=== PATIENT | male | born 1980 | race Caucasian/White ===

== ENCOUNTER 2017-09-22 13:51 | Inpatient (IN) | payer MEDICARE ==
[2017-09-22 15:38] VITALS: BMI 21.5
--- NOTE | 2017-09-22 16:05 | HP ---
CIWA Score - CIWA Score Nausea/Vomitin Muscle Tremors: 3 Anxiety: 3 Agitation: 3 Paroxysmal Sweats: 2 Orientation: 0-Oriented Tacttile Disturbances: 1-Very Mild Itch/Numbness Auditory Disturbances: 1-Very Mild Visual Disturbances: 0-None Headache: 2-Mild CIWA-Ar Total Score: 18 Admission ROS BHS - HPI Chief Complaint: i need help to stop drinking alcohol Allergies/Adverse Reactions: Allergies Allergy/AdvReac Type Severity Reaction Status Date / Time No Known Allergies Allergy Verified 09/22/17 15:48 History of Present Illness: this 37 years old male with alcohol dependence,seeking detox,withdrawal symptom, last detox o[place]01 [place] last 09/20/17 hypertension copd nicotine dependence no significant period sobriety - Ebola screening Have you traveled outside of the country in the last 21 days: No (N) Have you had contact with anyone from an Ebola affected area: No Have you been sick,other than usual withdrawal symptoms: No Do you have a fever: No - Review of Systems Constitutional: Chills, Loss of Appetite, Malaise, Night Sweats, Changes in sleep, Weakness EENT: reports: Nose Congestion Respiratory: reports: No Symptoms reported, Other (asthma) GI: reports: Diarrhea, Nausea, Vomiting, Abdominal cramping : reports: No Symptoms Reported Musculoskeletal: reports: Back Pain, Muscle Pain Integumentary: reports: Dryness Neuro: reports: Headache, Tremors Endocrine: reports: No Symptoms Reported Hematology: reports: No Symptoms Reported Psychiatric: reports: No Sypmtoms Reported, Judgement Intact, Mood/Affect Appropiate, Orientated x3 Patient History - Patient Medical History Hx Asthma: Yes Hx Chronic Obstructive Pulmonary Disease (COPD): Yes Hx Cardiac Disorders: No Hx Hypertension: No Hx Seizures: Yes (etoh related seizures last 2 days ago.) Hx Diabetes: No Hx Gastrointestinal Disorders: No Hx Genitourinary Disorders: No Hx Sexually Transmitted Disorders: No Hx Renal Disease (ESRD): No Hx Thyroid Disease: No Hx Human Immunodeficiency Virus (HIV): No (last 2015 negative) Hx Hepatitis C: No Hx Depression: No Hx Suicide Attempt: No Hx Bipolar Disorder: No Hx Schizophrenia: No Other Medical History: no suicidal,no homicidal - Patient Surgical History Past Surgical History: Yes Hx Appendectomy: Yes (1999) Hx Cholecystectomy: Yes (2011) - PPD History Previous Implant?: Yes Implanted On Prior [facility] Admission?: No PPD to be Administered?: Yes - Smoking Cessation Smoking history: Current every day smoker Have you smoked in the past 12 months: Yes Aproximately how many cigarettes per day: 10 Hx Chewing Tobacco Use: No Initiated information on smoking cessation: Yes 'Breaking Loose' booklet given: 09/22/17 - Substance & Tx. History Hx Alcohol Use: Yes Hx Substance Use: No Substance Use Type: Alcohol Hx Substance Use Treatment: Yes (in [facility] 10/01) - Substances Abused Alcohol Route: Oral Frequency: Daily Amount used: 1.5 LITERS VODKA Age of first use: 10 Date of Last Use: 09/22/17 Family Disease History - Family Disease History Family Disease History: Other: Father (alcohol), Mother (alcohol) Admission Physical Exam [facility] - Vital Signs Vital Signs: Vital Signs - 24 hr 09/22/17 15:35 Temperature 98.0 F Pulse Rate 108 H Respiratory 16 Rate Blood Pressure 150/113 - Physical General Appearance: Yes: Moderate Distress, Tremorous, Irritable, Sweating, Anxious HEENTM: Yes: Normal ENT Inspection, MIRA, Pharynx Normal Respiratory: Yes: Lungs Clear, Normal Breath Sounds, No Respiratory Distress Neck: Yes: Within Normal Limits, Supple, Trachea in good position Breast: Yes: Within Normal Limits Cardiology: Yes: Tachycardia Abdominal: Yes: Within Normal Limits, Normal Bowel Sounds, Soft, Surgical Scar Genitourinary: Yes: Within Normal Limits Back: Yes: Muscle Spasm Musculoskeletal: Yes: full range of Motion, Back pain, Muscle Pain Extremities: Yes: Tremors Neurological: Yes: wood piler II-XII NML intact, Fully Oriented, Alert, Motor Strength 5/5 Integumentary: Yes: Dry Lymphatic: Yes: Within Normal Limits - Diagnostic (1) Alcohol dependence with uncomplicated withdrawal Status: Acute (2) Seizure Status: Acute (3) Asthma Status: Acute Qualifiers: Asthma severity: mild Asthma persistence: intermittent Asthma complication type: uncomplicated Qualified Code(s): J45.20 - Mild intermittent asthma, uncomplicated (4) Nicotine dependence Status: Acute Qualifiers: Nicotine product type: cigarettes Substance use status: uncomplicated Qualified Code(s): F17.210 - Nicotine dependence, cigarettes, uncomplicated Cleared for Admission [facility] - Detox or Rehab [facility] Level of Care: Medically Managed Detox Regimen/Protocol: Librium BHS Breath Alcohol Content Breath Alcohol Content: 0.036 Urine Drug Screen - Results Drug Screen Negative: Yes
[2017-09-22] MEDS ORDERED: MAGNESIUM CITRATE 300 ML BOTTLE PO PRN (16:11)
[2017-09-22] MEDS ORDERED: MENTHOL/PHENOL 1 EACH UD MM PRN (16:11)
[2017-09-22] MEDS ORDERED: IBUPROFEN 400 MG TABLET (FP) PO PRN (16:11)
[2017-09-22] MEDS ORDERED: MAGNESIUM HYDROX 2400MG/30ML ORAL SUSPENSION 30 ML CUP PO PRN (16:11)
[2017-09-22] MEDS ORDERED: LOPERAMIDE HCL 2 MG CAPSULE PO PRN (16:11)
[2017-09-22] MEDS ORDERED: guaiFENesin/D-METHORPHAN HB 10 ML UNIT-DOSE CUPS PO PRN (16:11)
[2017-09-22] MEDS ORDERED: P-EPHED 60MG/TRIPROLIDI 2.5MG TABLET PO PRN (16:11)
[2017-09-22] MEDS ORDERED: MAG HYDROX/AL HYDROX/SIMETH 30 ML UNIT-DOSE CUP PO PRN (16:11)
[2017-09-22] MEDS ORDERED: ACETAMINOPHEN 325 MG TABLET (FP) PO PRN (16:11)
[2017-09-22] MEDS ORDERED: chlordiazePOXIDE HCL 25 MG CAPSULE PO ONE (17:00)
[2017-09-22] MEDS ORDERED: diazePAM 5 MG TABLET PO ONE ×2 (17:45→18:45)
--- NOTE | 2017-09-22 18:18 | PN ---
[facility] Progress Note Note: Psychiatry Attending's filteration operator note : Seizure episode reported. 37 y/o male with alcohol dependence . Seeking detoxification treatment.Negative toxicology. History of withdrawal-related seizures two days ago. Newly admitted to this unit.[facility] report : appreciated. Patient seen.Found sitting in chair in leg man area. Adjacent to nurse station.Patient is fully awake.Cooperative. Aware of his surroundings.Verbal,tremulous,visibly anxious. Shakes started on arrival to the unit.No fall observed. Patient is wearing clean hospital gowns. Hypertensive.No incontinence. Evaluated by the medical OYSTER PREPARER Sanna. Mr Post gradually calmed down.Escorted to his room.Ambulatory. Able to maintain appropriate conversation with this underwriter.Coherent. Goal-directed.Fair historian. without children.Domiciled and employed. No reported history of psychiatric illness or hospitalizations.Never on psychotropics. Fair cognition at time of this intervention.No evidence of psychosis. Impression : Alcohol withdrawal. Plan : Medical management (see OYSTER PREPARER's note for details). Ensure safety : Constant Observation.Staff in attendance. Reassurance and support provided to the patient. Psychiatry will follow.
--- NOTE | 2017-09-22 20:08 | PN ---
S Progress Note Note: Called to see patient at approx 18:35 for seizure activity. Vital Signs - 24 hr 09/22/17 09/22/17 09/22/17 15:35 18:00 18:30 Temperature 98.0 F Pulse Rate 108 H 108 H 104 H Respiratory 16 Rate Blood Pressure 150/113 09/22/17 19:04 Temperature 98.9 F Pulse Rate 104 H Respiratory 20 Rate Blood Pressure 183/88 When arrived to unit patient was having tonic and clonic muscle movement in both arms and legs (R) greater than (L) w/ intermittent backward taut flexion of head. C/o muscle pain in legs. No choking sounds, drooling, or expectoration of saliva/fluids. Patient was alert and responding appropriately verbally during seizures. Was able to walk from chair to bed with minimal assistance. No incontinent episodes. Pulse ox = 96%. No cyanosis or SOB. Lungs CTA. DARRION = 0.227. Patient had just recently arrived to unit and nurses had given.Librium at about 18:00. at 18:45, ordered Valium 5 mg PO stat. Started on flexeril for muscle relaxation. Continue on Librium. Start on 1:1 monitoring.
[2017-09-22] MEDS ORDERED: NICOTINE POLACRILEX 2 MG GUM BUC PRN (20:31)
[2017-09-22] MEDS: chlordiazePOXIDE HCL 25 MG CAPSULE PO PRN (21:30)
[2017-09-22] MEDS ORDERED: MELATONIN 5 MG TABLETS PO PRN (22:00)
[2017-09-22] MEDS ORDERED: THIAMINE HCL 100 MG TABLET (FP) PO SCH (22:00)
[2017-09-22] MEDS: CYCLOBENZAPRINE HCL 5 MG TABLET PO SCH (22:49)
[2017-09-22] MEDS: chlordiazePOXIDE HCL 25 MG CAPSULE PO SCH (22:49)
--- NOTE | 2017-09-22 22:59 | PN ---
S Progress Note Note: F/u: Nurse reports patient had tremors around 21:30 and given an additional dose of Librium. Currently patient has mild intension tremors. Monitored ambulation and gait is steady. Remains alert and oriented. HR: regular rhythm. Lungs CTA. Patient refused transport to ER when seen earlier. Vital Signs Temperature 97.9 F 09/22/17 22:17 Pulse Rate 109 H 09/22/17 22:17 Respiratory Rate 24 09/22/17 22:17 Blood Pressure 136/71 09/22/17 22:17 O2 Sat by Pulse Oximetry (%) Discontinue 1:1 at midnight and begin q 30 minute rounding. Give 100 mg vistaril HS. Continue Librium standing and prn orders.
[2017-09-22] MEDS ORDERED: hydrOXYzine PAMOATE 50 MG CAPSULE (FP) PO ONE (23:19)
[2017-09-23] MEDS: chlordiazePOXIDE HCL 25 MG CAPSULE PO PRN (01:40)
[2017-09-23] MEDS: CYCLOBENZAPRINE HCL 5 MG TABLET PO SCH ×2 (05:50→14:24)
[2017-09-23] MEDS: chlordiazePOXIDE HCL 25 MG CAPSULE PO SCH ×2 (05:50→10:22)
[2017-09-23] MEDS ORDERED: PRENATAL VITAMINS W/ FOLIC ACID TABLET (FP) PO SCH (10:00)
[2017-09-23] MEDS ORDERED: NICOTINE 14 MG/24 HOURS TOPICAL PATCH TD SCH (10:00)
[2017-09-23 10:48] LABS: HEMOGLOBIN 14.7 GM/dL (11.7-16.9); MCH 29.9 pg (25.7-33.7); MCHC 34.2 g/dl (32.0-35.9); MEAN CELL VOLUME 87.5 fl (80-96); MEAN PLT VOLUME 7.4 fl (7.5-11.1); PLATELET COUNT 193 K/MM3 (134-434); RBC 4.92 M/mm3 (4.00-5.60); RDW 15.2 % (11.9-15.9); WHITE BLOOD COUNT 8.2 K/mm3 (4.0-10.0)
[2017-09-23 10:59] LABS: ALBUMIN 3.8 g/dl (3.4-5.0); ALK PHOS 100 U/L (45-117); ANION GAP 8 (8-16); BILIRUBIN,TOTAL 0.5 mg/dL (0.2-1.0); BLOOD UREA NITROGEN 10 mg/dL (7-18); CALCIUM 9.1 mg/dL (8.5-10.1); CHLORIDE 102 mmol/L (98-107); CO2 29 mmol/L (21-32); CREATININE 0.7 mg/dL (0.7-1.3); GLUCOSE,RANDOM 81 mg/dL (74-106); SGOT/AST 35 U/L (15-37); SGPT/ALT 68 U/L (12-78); SODIUM 139 mmol/L (136-145); TOT PROT 7.6 g/dl (6.4-8.2)
[2017-09-23 13:46] VITALS: BP 108/66; TEMP 96.7
--- NOTE | 2017-09-23 14:50 | EKG ---
Test Reason : Blood Pressure : / mmHG Vent. Rate : 089 BPM Atrial Rate : 089 BPM P-R Int : 160 ms QRS Dur : 096 ms QT Int : 338 ms P-R-T Axes : 019 086 033 degrees QTc Int : 411 ms NORMAL SINUS RHYTHM NORMAL ECG NO PREVIOUS ECGS AVAILABLE Confirmed by MD Darnell, Vadim ([id number]) on 09/23/2017 2:50:11 PM Referred By: Confirmed By:Vadim Patrick MD
[2017-09-23 14:58] VITALS: PULSE 86
--- NOTE | 2017-09-23 15:28 | PN ---
S CIWA - CIWA Score Nausea/Vomitin-No Nausea/No Vomiting Muscle Tremors: 3 Anxiety: 4-Mod. Anxious/Guarded Agitation: 5 Paroxysmal Sweats: 3 Orientation: 0-Oriented Tacttile Disturbances: 2-Mild Itch/Numbness/Burn Auditory Disturbances: 0-None Visual Disturbances: 2-Mild Sensitivity Headache: 0-None Present CIWA-Ar Total Score: 19 S Progress Note (SOAP) Subjective: Tremors, Anxious, Stomach Cramping, Sweating. Objective: PATIENT A & O X 3, OBSERVED AMBULATING ON UNIT. NO ACUTE DISTRESS. 09/23/17 15:26 Vital Signs Temperature 96.7 F L 09/23/17 13:45 Pulse Rate 86 09/23/17 14:00 Respiratory Rate 20 09/23/17 14:00 Blood Pressure 108/66 09/23/17 13:45 O2 Sat by Pulse Oximetry (%) Laboratory Tests 09/23/17 09/23/17 09/23/17 07:55 07:55 07:55 WBC 8.2 RBC 4.92 Hgb 14.7 Hct 43.0 MCV 87.5 MCH 29.9 MCHC 34.2 RDW 15.2 Plt Count 193 MPV 7.4 L Sodium 139 Potassium 4.0 Chloride 102 Carbon Dioxide 29 Anion Gap 8 BUN 10 Creatinine 0.7 Creat Clearance w eGFR > 60 Random Glucose 81 Calcium 9.1 Total Bilirubin 0.5 AST 35 ALT 68 Alkaline Phosphatase 100 Total Protein 7.6 Albumin 3.8 RPR Titer Nonreactive LABS NOTED. UA RESULTS PENDING. 09/23/17 15:27 Assessment: 09/23/17 15:27 WITHDRAWAL SYMPTOMS. Plan: CONTINUE DETOX. INCREASE DAILY PO FLUID INTAKE.
--- NOTE | 2017-09-23 15:33 | DS ---
[facility] Detox Discharge Summary Admission Date: 09/22/17 Discharge Date: 09/23/17 - History Present History: Alcohol Dependence Additional Comments: DESPITE STRONG ENCOURAGEMENT FROM PRODUCTION WELDER / NURSING STAFF TO REMAIN ON DETOX UNIT AND TO COMPLETE DETOX REGIMEN, PATIENT DOES NOT WISH TO STAY TO COMPLETE DETOX REGIMEN. RISKS OF LEAVING DETOX UNIT AGAINST MEDICAL ADVICE AND PRIOR TO COMPLETION OF DETOX REGIMEN EXPLAINED TO PATIENT. PATIENT ADVISED TO GO IMMEDIATELY TO NEAREST ER SHOULD ANY INTOLERABLE DETOX SYMPTOMS DEVELOP AT ANY TIME. PATIENT LEFT DETOX UNIT IN STABLE MEDICAL CONDITION. Pertinent Past History: History of Seizure, History of Asthma, History of C.O.P.D. - Physical Exam Results Vital Signs: Vital Signs Temperature 96.7 F L 09/23/17 13:45 Pulse Rate 86 09/23/17 14:00 Respiratory Rate 20 09/23/17 14:00 Blood Pressure 108/66 09/23/17 13:45 O2 Sat by Pulse Oximetry (%) Pertinent Admission Physical Exam Findings: WITHDRAWAL SYMPTOMS. Laboratory Tests 09/23/17 09/23/17 09/23/17 07:55 07:55 07:55 WBC 8.2 RBC 4.92 Hgb 14.7 Hct 43.0 MCV 87.5 MCH 29.9 MCHC 34.2 RDW 15.2 Plt Count 193 MPV 7.4 L Sodium 139 Potassium 4.0 Chloride 102 Carbon Dioxide 29 Anion Gap 8 BUN 10 Creatinine 0.7 Creat Clearance w eGFR > 60 Random Glucose 81 Calcium 9.1 Total Bilirubin 0.5 AST 35 ALT 68 Alkaline Phosphatase 100 Total Protein 7.6 Albumin 3.8 RPR Titer Nonreactive LABS NOTED. - Treatment Hospital Course: Detoxed Safely - Medication Discharge Medications: Ambulatory Orders NK [No Known Home Medication] 09/22/17 - Diagnosis (1) Alcohol dependence with uncomplicated withdrawal Current Visit: Yes Status: Acute (2) Asthma Current Visit: Yes Status: Acute Qualifiers: Asthma severity: mild Asthma persistence: intermittent Asthma complication type: uncomplicated Qualified Code(s): J45.20 - Mild intermittent asthma, uncomplicated (3) Nicotine dependence Current Visit: Yes Status: Acute Qualifiers: Nicotine product type: cigarettes Substance use status: uncomplicated Qualified Code(s): F17.210 - Nicotine dependence, cigarettes, uncomplicated (4) Seizure Current Visit: Yes Status: Acute - AMA Did Patient Leave Against Medical Advice: Yes (PATIENT DID NOT WISH TO STAY TO COMPELTE DETOX REGIMEN.)
[2017-09-23] MEDS ORDERED: chlordiazePOXIDE HCL 25 MG CAPSULE PO SCH (23:00)
[2017-09-24] MEDS ORDERED: chlordiazePOXIDE 5 MG CAPSULE PO SCH (23:00)
[2017-09-25] MEDS ORDERED: chlordiazePOXIDE HCL 10 MG CAPSULE PO SCH (23:00)
== END 2017-09-23 15:30 | disposition left against medical advice (07) | DRG 770 ==
LOC: EDBD 13:51 → YASAS 13:51 → Y3N 16:01
PROVIDERS: ADMIT Surgery; ATTEND Surgery
PROC: HZ2ZZZZ Detoxification Services for Substance Abuse Treatment (ICD-10-PCS; principal; 2017-09-22)
DX: F10.230 Alcohol dependence with withdrawal, uncomplicated (principal); F17.210 Nicotine dependence, cigarettes, uncomplicated; J45.20 Mild intermittent asthma, uncomplicated; J44.9 Chronic obstructive pulmonary disease, unspecified; R00.0 Tachycardia, unspecified; G40.909 Epilepsy, unspecified, not intractable, without status epilepticus
CPT/HCPCS: 36415; 80053; 85027; 86593; 93005; 93010